=== PATIENT | male | born 1960 | race Caucasian/White ===

== ENCOUNTER 2019-03-10 12:10 | Observation (INO) | payer BC, OTHER ==
[~2019-03-10] VITALS: Ht 177.8 cm; Wt 90.7 kg
--- NOTE | ~2019-03-10 | D ---
[facility] [place] [address] DISCHARGE SUMMARY Name: CARL RONQUILLO Room #: 209-P [facility] IN M.R.#: [id number] Admission: 03/10/19 Attend Phys: Sohan Woods Discharge: 03/11/19 Date of : 58 Report #: [id number] THIS REPORT FOR: //name// CC: Sohan Jameson DATE OF SERVICE: 03/11/2019 ADMITTING DIAGNOSIS: Unstable angina. DISCHARGE DIAGNOSES: 1. Unstable angina. 2. Coronary artery disease. 3. Dyslipidemia. 4. Hypertension. 5. Acid peptic disease. DISCHARGE MEDICATIONS: Atorvastatin 20 mg a day, Cosentyx, pantoprazole, losartan, methotrexate, Advair, folic acid, sublingual nitroglycerin, Salcha, aspirin, metoprolol XL 25 mg daily. FOLLOWUP: 1. The patient is to obtain an echocardiogram as an outpatient. Says it was not done as an inpatient. 2. Return for aortocoronary bypass grafting next Friday as per Dr. Lanza's note. PROCEDURE PERFORMED: Left heart catheterization. BRIEF CLINICAL HISTORY: See history and physical in the chart. HOSPITAL COURSE: The patient was admitted to the hospital and underwent routine left heart catheterization. This demonstrates significant 3-vessel coronary artery disease, which was best amenable for long-term benefit with aortocoronary bypass grafting. Thoracic Surgery was then consulted for assessment which they concurred. The patient was started on a more rigorous antianginal regimen with Toprol-XL 25 mg daily and was allowed to ambulate after the standard bedrest post procedure. He did not have any recurrent symptomatology and he is being discharged home in stable and improved condition to follow up with the previously stated discharge instructions and medications. By: 1221 1438 Sohan Woods MD /nt
[2019-03-10 12:46] VITALS: BP 142/80
[2019-03-10] MEDS ORDERED: COSENTYX (150 MG/1 M SUBQ (12:54)
[2019-03-10] MEDS ORDERED: LIPITOR 20 MG T20 M1 PO (12:54)
[2019-03-10] MEDS ORDERED: LOSARTAN-HCTZ1 EAC1 PO (12:55)
[2019-03-10] MEDS ORDERED: PROTONIX40 M1 PO (12:55)
[2019-03-10] MEDS ORDERED: METHOTREXATE 22.5 MG PO (12:56)
[2019-03-10] MEDS ORDERED: ADVAIR HFA 115-12 G1 INH (12:57)
[2019-03-10] MEDS ORDERED: NITROGLYCERIN0.4 MG SUBLING (12:58)
[2019-03-10] MEDS ORDERED: NORCO 5-325 TA1 EAC1 PO (12:58)
[2019-03-10] MEDS ORDERED: FOLIC ACID1 MG PO (12:58)
[2019-03-10] MEDS ORDERED: IBUPROFEN 200200 M1 PO (13:00)
[2019-03-10] MEDS ORDERED: ASPIR 8181 MG PO (13:00)
[2019-03-10 13:01] LABS: HEMATOCRIT 42.8 % (42.0-52.0); HEMOGLOBIN 15.3 gm/dL (14.0-18.0); MCH 30.5 pg (26.0-34.0); MCHC 35.6 g/dL (28.0-37.0); MCV 85.5 fL (80.0-100.0); RBC 5.01 mil/uL (4.50-6.00); WBC 8.6 thou/uL (4.0-11.0)
[2019-03-10 13:12] LABS: CREATININE 0.9 mg/dL (0.7-1.3); POTASSIUM 3.5 mmol/L (3.5-5.1)
--- NOTE | 2019-03-10 13:26 | EKG ---
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
[2019-03-10 17:05] LABS: ABSOLUTE NEUTROPHILS 6.4 thou/uL (1.4-8.2); BASOPHILS 0.4 % (0.0-2.0); EOSINOPHILS 1.4 % (0.0-3.0); HEMATOCRIT 40.9 % (42.0-52.0); HEMOGLOBIN 14.6 gm/dL (14.0-18.0); LYMPHOCYTES 15.5 % (24.0-44.0); MCH 30.6 pg (26.0-34.0); MCHC 35.8 g/dL (28.0-37.0); MCV 85.5 fL (80.0-100.0); PLATELET COUNT 160 thou/uL (150-400); POLYS 75.7 % (36.0-66.0); RBC 4.78 mil/uL (4.50-6.00); RDW 14.1 % (10.5-14.5); WBC 8.5 thou/uL (4.0-11.0)
[2019-03-10 17:12] LABS: CALCIUM 8.5 mg/dL (8.5-10.1); CREATININE 0.8 mg/dL (0.7-1.3); POTASSIUM 3.4 mmol/L (3.5-5.1)
[2019-03-10 17:14] LABS: APTT 30.9 Seconds (24.5-32.8); INR 1.1
[2019-03-10 17:18] LABS: ALBUMIN 3.3 g/dL (3.4-5.0); TOTAL BILIRUBIN 0.7 mg/dL (<0.1-1.0); TOTAL PROTEIN 6.8 g/dL (6.4-8.2)
--- NOTE | 2019-03-10 17:30 | NUR ---
DR. HERNANDEZ CALLED TO GIVE ORDERS FOR PT, I TOOK NOTES FOR NURSE AND WILL ENTER MUCH I CAN AND GIVE THE NOTE TO NURSE THAT WILL CARE FOR PT
--- NOTE | 2019-03-10 18:50 | NUR ---
PT TO UNIT FROM [facility] - NO INTERVENTION - PATIENT TO HAVE CABG NEXT WEEK. GROIN SITE C/D/I/ VSS. NO CO'S OF PAIN OR NASUEA. KAROLINE DIET AND FLUIDS. PT ORIENTED TO ROOM AND BEDSPACE. MAY BE OFF BEDREST AT 1930, NO CO'S AT THE PRESENT TIME.
[2019-03-10 19:15] VITALS: BP 135/75
[2019-03-11 00:54] VITALS: BP 126/70
--- NOTE | 2019-03-11 01:29 | NUR ---
ASSESSMENTS CHARTED. PATIENT OFF BEDREST AT 1930 CATH ACCESS SITE IS CLEAN, DRY AND SOFT. NO INTERVENTIONS WERE DONE, PLAN IS FOR PATIENT TO HAVE CABG ON 03/19/19. PREOP WORKUP IS BEING COMPLETED. XRAY, ULTRASOUNDS, LABS BEING DONE PRIOR TO HIS DISCHARGE THEN RETURN FOR SURGERY.
[2019-03-11 03:42] VITALS: BP 127/76
[2019-03-11 05:10] LABS: GLYCOHEMOGLOBIN (HGB A1C) 5.5 % (4.8-5.6)
[2019-03-11] MEDS ORDERED: METOPROLOL SUCC25 M1 PO (09:27)
[2019-03-11 10:05] VITALS: BP 134/85
[2019-03-11 11:06] VITALS: BP 144/81
[2019-03-11 11:28] LABS: URINE BILIRUBIN NEGATIVE (Negative); URINE BLOOD NEGATIVE (Negative); URINE CLARITY CLEAR; URINE COLOR YELLOW; URINE GLUCOSE-RANDOM* NEGATIVE (Negative); URINE KETONES NEGATIVE (Negative); URINE LEUKOCYTES-REFLEX NEGATIVE (Negative); URINE NITRITE-REFLEX NEGATIVE (Negative); URINE PROTEIN (DIPSTICK) NEGATIVE (Negative); URINE UROBILINOGEN 0.2 E.U./dl (0.2-1.0)
[2019-03-11 12:49] VITALS: BP 144/81
--- NOTE | 2019-03-11 13:09 | NUR ---
ASSESSMENT CHARTED. PT ALERT AND ORIENTED. VSS. DENIED HAVING PAIN OR DISCOMFORT. RIGHT GROIN INCISION C/D/I. NO HEMATOMA NOTED. ORDERS GIVEN TO DISCHARGE PT TO HOME. DISCHARGE INSTRUCTIONS GIVEN TO PT. PT VERBERLIZED UNDERSTANDING.
--- NOTE | 2019-03-11 13:24 | CATHLAB ---
[facility] [place] [address] INVASIVE PROCEDURE REPORT Name: CARL RONQUILLO Room #: 209-P [facility] IN M..#: [id number] Admission: 03/10/19 Attend Phys: Sohan Rodriguez Discharge: 03/11/19 Date of : 58 Date of Service: 03/11/19 1324 Report #: [id number] THIS REPORT FOR: //name// APPROVED REPORT Study performed: 03/10/2019 13:03:51 Patient Details Patient Status: Out-Patient Room #: The patient is a 58 year-old male Event Personnel Shanti Guevara RTR Monitor, Juan José Mcginnis RN RN, Ld Hutchinson RTR Scrub, Sohan Woods Parts Salesman Procedures Performed Art Access - R femoral artery* Left Heart Cath w/or w/o Coronaries [id number] [facility] [id number] Initial Mod Sed Same Phys/QHP 5y [id number] Hemostasis with Manual pressure, division of conscious sedation Indication Positive stress test, Chest pain Risk Factors Family History, Hypercholesterolemia, Hypertension Procedure Narrative The Right Groin^ was infiltrated with 1% Lidocaine subcutaneous anesthesia. A PINNACLE 4FR Sheath #[id number] sheath was inserted into the RFA^. Coronary angiography was performed using coronary diagnostic catheters. The right coronary system was accessed and visualized with a JR4 catheter. The left coronary system was accessed and visualized with a JL5 catheter. The left ventricle was accessed and visualized with a pigtail catheter. Left ventriculogram was performed in 30 degree projection. Hemostasis was obtained with manual pressure following sheath removal without any complications. The patient tolerated the procedure well and there were no complications associated with the procedure. There was no hematoma. Intraoperative Conscious Sedation Sedation start time: 14:46 Case end Time: 15:10 Versed 2 mg [facility] [address] [place] [address] INVASIVE PROCEDURE REPORT Name: YGCARL PATRICK Room #: 209-P [facility] IN ..#: [id number] Admission: 03/10/19 Attend Phys: Sohan Rodriguez Discharge: 03/11/19 Date of : 58 Date of Service: 03/11/19 1324 Report #: [id number] Fluoro Time: 2.30 minutes Dose: DAP 3018.10 cGycm2 414 mGy Contrast Type and Amount: Omnipaque 50 ml Coronary Angiography The patient's coronary anatomy is right dominant. Diagnostic Cath Left Main Moderate caliber vessel which bifurcates left anterior descending left circumflex and is free of high-grade disease. There is evidence of epicardial calcifications noted throughout its course. In the distal portion is a eccentric 20-30% plaque that's identified LAD Small to moderate caliber two-vessel which in its proximal course is a concentric calcified lesion that appears to be in the range between 80-90%. The vessel continues on any AV groove giving rise to diagonal branch and luminal irregularities there are mild noted beyond as it terminates as a bifurcating vessel at the apex. Diagonal 1 Vee vessel diffusely diseased similarly but a less than half a millimeter diameter vessel Circumflex Small to moderate size vessel which has an eccentric calcified greater than 90% ostial lesion. The vessel continues on and gives rise to a moderate marginal branch and then continues with at least 50-60% stenosis posteriorly giving rise to 2 small posterior wall branches OM1 Moderate caliber vessel coursing along the lateral aspect of the heart with luminal irregularities but no high-grade lesions identified OM2 Small-caliber insignificant vessel without high-grade disease Right Coronary Moderate to large caliber vessel of normal origin which is heavily calcified throughout its proximal mid course. The vessel continues in the AV groove in luminal irregularities to the acute marginal or a subtotal occlusion of a small RV marginal branches noted. The RCA proper then continues posteriorly where there is a 50% region followed by normalization and then a 70+ percent lesion at the origin of the posterior descending artery. The vessel then continues on giving rise to moderate caliber posterior lateral branch that has moderate proximal disease. R PDA Small insignificant caliber vessel with diffuse proximal disease Conclusion 1. Coronary disease, severe, three-vessel [facility] [address] [place] [address] INVASIVE PROCEDURE REPORT Name: CARL RONQUILLO Room #: 209-P [facility] IN M.R.#: [id number] Admission: 03/10/19 Attend Phys: Sohan Rodriguez Discharge: 03/11/19 Date of : 58 Date of Service: 03/11/19 1324 Report #: [id number] 2. Abnormal hemodynamics with elevated left ventricle end-diastolic pressure Recommendations Cardiac Risk Reduction Program CABG <ELECTRONICALLY SIGNED> By: Sohan Woods MD 03/11/19 1324 1324 1324 Sohan Woods MD /INF
--- NOTE | 2019-03-11 15:07 | NUR ---
Pt dc'd to home today with no dc planning needs. Pt seen by cardiac rehab for preop visit. Plans noted for open heart surgery next Friday. The pt has insurance in place for f/u care. He is indep with gait and adls and lives with his . case note opened.
--- NOTE | 2019-03-13 12:15 | HC ---
[facility] [place] [address] CONSULTATION Name: CARL RONQUILLO Room #: 209-P [facility] Jennifer Aguillon#: [id number] Admission: 03/10/19 Attend Phys: Sohan Woods Discharge: 03/11/19 Date of : 58 Report #: [id number] THIS REPORT FOR: //name// CC: Sohan Jameson DATE OF SERVICE: 03/10/2019 REASON FOR CONSULT: We were asked to see the patient by Dr. Woods. HISTORY OF PRESENT ILLNESS: The patient is a 58-year-old with coronary artery disease. The patient states that he has had exertional angina characterized by chest pain. This led to a stress test where he had clinical and EKG evidence of angina and ischemia, and cardiac catheterization was done today that shows 90% distal right coronary stenosis at the crux and 60-70% LAD diffuse disease and 80% circumflex stenosis. Left ventricular function is satisfactory. PAST MEDICAL HISTORY: The patient denies previous cardiac history. He is treated for hypertension and hyperlipidemia. FAMILY HISTORY: Positive with mother having bypass surgery in her 70s and a grandfather who in his 50s of a massive heart attack. 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 He is , nonsmoker. REVIEW OF SYSTEMS: GENERAL: The patient has been in his usual state of health. CONSTITUTIONAL: No fever, chills, weight change. EYES: Wears glasses. HEENT: No headaches. No hearing problems. RESPIRATORY: No shortness of breath. No sputum production. CARDIAC: As mentioned, angina, no palpitations. GASTROINTESTINAL: No nausea, vomiting blood. GENITOURINARY: No urgency, frequency, or blood. MUSCULOSKELETAL: Arthritis. NEUROLOGIC: No motor or sensory dysfunction. PSYCHIATRIC: The patient states he has been under a lot of stress at work recently. HEMATOLOGIC: No bleeding or bruisability. PHYSICAL EXAMINATION: GENERAL: The patient is oriented and appropriate. VITAL SIGNS: Heart rate 70, O2 sat 98 on room air. HEENT: No scleral icterus, no arcus. NECK: No mass, no bruit. CHEST: Clear to auscultation. [facility] [address] [place] [address] CONSULTATION Name: CARL RONQUILLO Room #: 209-P [facility] Jennifer Aguillon#: [id number] Admission: 03/10/19 Attend Phys: Sohan Woods Discharge: 03/11/19 Date of : 58 Report #: [id number] HEART: Rhythm regular, no murmurs. ABDOMEN: Soft, no mass, no tenderness. EXTREMITIES: No clubbing, cyanosis, or edema. No obvious saphenous vein problems. VASCULAR: Pulses 2+ distally. NEUROLOGIC: No motor or sensory dysfunction. The patient is lying in bed after a femoral access cardiac cath. PSYCHIATRIC: Shows insight into problems. Oriented and appropriate. Mood is neither elevated nor depressed. IMPRESSION: The patient has important 3-vessel coronary artery disease with preserved ventricular function. The risks and details of coronary artery bypass surgery were discussed. Risks include but are not limited to bleeding, infection, anesthesia risks, heart and lung problems, stroke, and . Options and alternatives were reviewed. The patient understands all of this and he wishes to proceed. We will organize the patient for elective coronary artery bypass surgery and order the appropriate preoperative testing. Risks and details, options and alternatives were reviewed and the patient understands and is ready for the surgery. Thank you for the consult. <ELECTRONICALLY SIGNED> By: Darrick Lanza MD 03/13/19 1215 1547 2357 Darrick Lanza MD /nt
[2019-03-16] MEDS ORDERED: TOPROL XL25 MG PO (13:25)
[2019-03-16] MEDS ORDERED: FLONASE 0.05%50 MCG NASAL (13:27)
[2019-03-16] MEDS ORDERED: VENTOLIN HFA 1818 GM INH (13:42)
== END 2019-03-11 13:12 | disposition home or self-care (01) ==
LOC: CATH 12:10 → 2N 16:57 → ENTRNSPT 03-11 12:52 → EDTRNSPTSTS 03-11 12:57 → 2N 03-11 13:12
PROVIDERS: Surgery Vascular Surgery; ADMIT Internal Medicine
DX: I25.110 Atherosclerotic heart disease of native coronary artery with unstable angina pectoris (principal); I10 Essential (primary) hypertension; E78.5 Hyperlipidemia, unspecified; K30 Functional dyspepsia; M19.90 Unspecified osteoarthritis, unspecified site; J45.909 Unspecified asthma, uncomplicated; Z79.82 Long term (current) use of aspirin; Z79.899 Other long term (current) drug therapy
CPT/HCPCS: 10081

== ENCOUNTER 2019-03-19 05:54 | Inpatient (IN) | payer BC, OTHER ==
[2019-03-19] VITALS (15 sets, daily range): BP systolic 88–128; BP diastolic 50–81
[~2019-03-19] VITALS: Ht 177.8 cm; Wt 92.5 kg
[~2019-03-19 05:54] MED LIST: ADVAIR HFA 115-12 G1 INH; ASPIR 8181 MG PO; COSENTYX (150 MG/1 M SUBQ; FLONASE 0.05%50 MCG NASAL; FOLIC ACID1 MG PO; IBUPROFEN 200200 M1 PO; LIPITOR 20 MG T20 M1 PO; LOSARTAN-HCTZ1 EAC1 PO; METHOTREXATE 22.5 MG PO; METOPROLOL SUCC25 M1 PO; NITROGLYCERIN0.4 MG SUBLING; NORCO 5-325 TA1 EAC1 PO; PROTONIX40 M1 PO; TOPROL XL25 MG PO; VENTOLIN HFA 1818 GM INH
[2019-03-19 12:50] LABS: MCH 31.4 pg (26.0-34.0); MCHC 36.3 g/dL (28.0-37.0); MCV 86.5 fL (80.0-100.0); RBC 3.47 mil/uL (4.50-6.00); RDW 14.1 % (10.5-14.5)
[2019-03-19 12:53] LABS: HEMOGLOBIN 10.9 gm/dL (14.0-18.0)
[2019-03-19 13:01] LABS: INR 1.4
[2019-03-19 13:03] LABS: APTT 33.1 Seconds (24.5-32.8); FIBRINOGEN 214.7 mg/dL (210-360); PROTIME 14.9 Seconds (9.3-11.4)
[2019-03-19 13:56] LABS: POC BE -6 mmol/L (-2.0 to +3.0); POC CA IONIZED 2.5 mg/dL (4.5-5.3); POC GLUCOSE 90 mg/dL (70-99); POC HCO3 18.9 mmol/L (22.0-26.0); POC HEMOGLOBIN 10.5 g/dL (14.0-18.0); POC POTASSIUM 2.9 mmol/L (3.5-5.1); POC SODIUM 150 mmol/L (136-145); POC pCO2 31.1 mmHg (35.0-45.0); POC pH 7.392 (7.360-7.450)
[2019-03-19 13:56] LABS: POC BE 1 mmol/L (-2.0 to +3.0); POC CA IONIZED 4.1 mg/dL (4.5-5.3); POC GLUCOSE 121 mg/dL (70-99); POC HEMOGLOBIN 10.9 g/dL (14.0-18.0); POC POTASSIUM 5.2 mmol/L (3.5-5.1); POC SODIUM 135 mmol/L (136-145); POC pCO2 41.6 mmHg (35.0-45.0); POC pH 7.405 (7.360-7.450)
[2019-03-19 13:56] LABS: POC BE 2 mmol/L (-2.0 to +3.0); POC CA IONIZED 4.2 mg/dL (4.5-5.3); POC GLUCOSE 112 mg/dL (70-99); POC HCO3 26.7 mmol/L (22.0-26.0); POC HEMOGLOBIN 10.5 g/dL (14.0-18.0); POC POTASSIUM 4.7 mmol/L (3.5-5.1); POC SODIUM 137 mmol/L (136-145); POC pCO2 41.4 mmHg (35.0-45.0); POC pH 7.418 (7.360-7.450)
[2019-03-19 13:56] LABS: POC BE 2 mmol/L (-2.0 to +3.0); POC CA IONIZED 4.6 mg/dL (4.5-5.3); POC GLUCOSE 126 mg/dL (70-99); POC HEMOGLOBIN 12.2 g/dL (14.0-18.0); POC POTASSIUM 4.7 mmol/L (3.5-5.1); POC SODIUM 136 mmol/L (136-145); POC pCO2 46.6 mmHg (35.0-45.0); POC pH 7.371 (7.360-7.450)
[2019-03-19 13:56] LABS: POC BE 1 mmol/L (-2.0 to +3.0); POC CA IONIZED 4.5 mg/dL (4.5-5.3); POC GLUCOSE 135 mg/dL (70-99); POC HCO3 26.6 mmol/L (22.0-26.0); POC HEMOGLOBIN 12.6 g/dL (14.0-18.0); POC POTASSIUM 5.5 mmol/L (3.5-5.1); POC SODIUM 135 mmol/L (136-145); POC pCO2 46.3 mmHg (35.0-45.0); POC pH 7.367 (7.360-7.450)
[2019-03-19 13:57] LABS: POC BE -2 mmol/L (-2.0 to +3.0); POC CA IONIZED 4.8 mg/dL (4.5-5.3); POC GLUCOSE 128 mg/dL (70-99); POC HCO3 21.8 mmol/L (22.0-26.0); POC HEMOGLOBIN 10.9 g/dL (14.0-18.0); POC POTASSIUM 3.9 mmol/L (3.5-5.1); POC SODIUM 138 mmol/L (136-145); POC pH 7.428 (7.360-7.450)
[2019-03-19 13:57] LABS: POC BE 1 mmol/L (-2.0 to +3.0); POC GLUCOSE 161 mg/dL (70-99); POC HCO3 25.4 mmol/L (22.0-26.0); POC HEMOGLOBIN 10.5 g/dL (14.0-18.0); POC POTASSIUM 4.6 mmol/L (3.5-5.1); POC SODIUM 134 mmol/L (136-145); POC pCO2 38.3 mmHg (35.0-45.0)
[2019-03-19 13:57] LABS: POC BE 1 mmol/L (-2.0 to +3.0); POC CA IONIZED 4.2 mg/dL (4.5-5.3); POC GLUCOSE 109 mg/dL (70-99); POC HCO3 25.3 mmol/L (22.0-26.0); POC HEMOGLOBIN 10.2 g/dL (14.0-18.0); POC POTASSIUM 4.5 mmol/L (3.5-5.1); POC SODIUM 138 mmol/L (136-145); POC pCO2 37.1 mmHg (35.0-45.0); POC pH 7.442 (7.360-7.450)
[2019-03-19 13:57] LABS: POC BE -2 mmol/L (-2.0 to +3.0); POC CA IONIZED 5.1 mg/dL (4.5-5.3); POC GLUCOSE 145 mg/dL (70-99); POC HCO3 22.7 mmol/L (22.0-26.0); POC HEMOGLOBIN 9.9 g/dL (14.0-18.0); POC POTASSIUM 3.9 mmol/L (3.5-5.1); POC SODIUM 137 mmol/L (136-145); POC pCO2 35.2 mmHg (35.0-45.0); POC pH 7.417 (7.360-7.450)
[2019-03-19 13:57] LABS: POC BE 1 mmol/L (-2.0 to +3.0); POC CA IONIZED 4.1 mg/dL (4.5-5.3); POC GLUCOSE 133 mg/dL (70-99); POC HCO3 25.1 mmol/L (22.0-26.0); POC HEMOGLOBIN 10.2 g/dL (14.0-18.0); POC POTASSIUM 4.7 mmol/L (3.5-5.1); POC SODIUM 137 mmol/L (136-145); POC pCO2 38.7 mmHg (35.0-45.0); POC pH 7.421 (7.360-7.450)
[2019-03-19 14:22] LABS: BE(vivo) -3.4 mmol/L (-2 to +3); HCO3 20.8 mmol/L (22.0-26.0); PCO2 34.9 mmHg (35.0-45.0); PO2 138.9 mmHg (80.0-100.0); pH 7.394 (7.360-7.450); sO2 98.8 % (92.0-98.0)
[2019-03-19 15:51] LABS: HEMATOCRIT 34.2 % (42.0-52.0); HEMOGLOBIN 12.2 gm/dL (14.0-18.0); MCH 30.8 pg (26.0-34.0); MCHC 35.7 g/dL (28.0-37.0); MCV 86.5 fL (80.0-100.0); RBC 3.96 mil/uL (4.50-6.00); RDW 14.4 % (10.5-14.5); WBC 17.7 thou/uL (4.0-11.0)
[2019-03-19 15:54] LABS: CALCIUM 8.2 mg/dL (8.5-10.1); CREATININE 0.9 mg/dL (0.7-1.3); POTASSIUM 4.4 mmol/L (3.5-5.1)
[2019-03-19 16:09] LABS: APTT 31.4 Seconds (24.5-32.8); INR 1.2; PROTIME 12.2 Seconds (9.3-11.4)
--- NOTE | 2019-03-19 17:00 | NUR ---
CM ASSESSMENT: CASE OPENED FOR DC PLANNING. CLINICAL INFO REVIEWED. PT KNOWN FROM RECENT ADMIT WITH PLAN FOR RETURN TODAY FOR CABG. PT OUT OF SURGERY, ON VENT. PASTRY COOK, LIVING WITIH SPOUSE IN HOUSE. 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 NO DME USE. ONCE EXTUBATED AND STBALE, WILL INITIATE THERAPY EVALS AND BRANDONWO TO ASSIST WITH COORDINATION OF DC PLANS.
[2019-03-19 17:18] LABS: BE(vivo) -3.3 mmol/L (-2 to +3); HCO3 21.5 mmol/L (22.0-26.0); PCO2 37.7 mmHg (35.0-45.0); PO2 162.7 mmHg (80.0-100.0); pH 7.373 (7.360-7.450)
--- NOTE | 2019-03-19 19:10 | NUR ---
ARRIVED ON UNIT @ 1405, PT ACCOMPANIED WITH NURSING STAFF, ANESHESIOLOGIST AND SURGEON. PT ARRIVED ON PROPOFOL GTT RUNNING BUT WHEN ASSESSED PT ABLE TO FOLLOW COMMANDS. PT IN SR, BP STABLE AT THAT TIME, SHIFT PROGRESSED PT WAS REQUIRED JOEY, RN JUST RESTARTED THE BAG THAT WAS BROUGHT WITH THE PT FROM THE OR, PER DR PATTERSON ORDERS AT THE BEDSIDE. NEW ORDERS FOR JOEY ORDERED FOF PT IN THE ICU, RN COMMUNICATES THIS WITH PHARMICIST. PT EXTUBATED @ 1732 TODAY, NOW ON 4L , SATS IN THE HIGH 90'S. CHEST TUBES X [address], 2 MEDIS AND 1 PLEURAL TO -20CM. NUNEZ IN PLACE, GOP NOTED. REPORT GIVEN TO LOLI CRUM.
[2019-03-20 05:23] LABS: BE(vivo) -5.3 mmol/L (-2 to +3); HCO3 18.3 mmol/L (22.0-26.0); PCO2 29.8 mmHg (35.0-45.0); PO2 48.7 mmHg (80.0-100.0); pH 7.405 (7.360-7.450); sO2 85.3 % (92.0-98.0)
[2019-03-20 05:54] LABS: HEMATOCRIT 32.3 % (42.0-52.0); HEMOGLOBIN 11.5 gm/dL (14.0-18.0); MCH 31.1 pg (26.0-34.0); MCHC 35.5 g/dL (28.0-37.0); MCV 87.5 fL (80.0-100.0); RBC 3.69 mil/uL (4.50-6.00); RDW 14.2 % (10.5-14.5); WBC 17.3 thou/uL (4.0-11.0)
[2019-03-20 06:14] LABS: CALCIUM 8.2 mg/dL (8.5-10.1)
--- NOTE | 2019-03-20 07:00 | NUR ---
Pt rested well through the night with stable VS. PRN fentanyl and hydrocodones given for c/o chest "soreness" with desired effects achieved. SpO2 decreased earlier this am while on Cardene gtt and ABG results called to Dr. Lanza. Update given and orders received. SpO2 remain adequate on current FiO2 and BP stable with Cardene gtt turned off. Chest tube drainage minimal and urine output adequate for shift. Am lab results noted, continue with POC.
--- NOTE | 2019-03-20 08:40 | NUR ---
RD consult received for diet education. S/P CABG x6 on 03/19. Still npo and in ICU. Will address nutrition education needs once out of ICU.
[2019-03-20 10:39] LABS: HCO3 20.6 mmol/L (22.0-26.0); PCO2 32.1 mmHg (35.0-45.0); PO2 65.6 mmHg (80.0-100.0); pH 7.425 (7.360-7.450); sO2 93.6 % (92.0-98.0)
--- NOTE | 2019-03-20 10:50 | NUR ---
PT COUGHING,SPLINTING INCISION WELL W PILLOW. C/O SEVERE PAIN LT SIDE OF CHEST,LT PLEURAL TUBE AREA, A 04/29.PT W SPLINTING RESP'S,DIAPHORETIC. PA #'S SLOWLY CREEPING UP, UOP DOWN. UPDATED. ORDERS NOTED.--VW
--- NOTE | 2019-03-20 12:36 | O ---
[facility] [place] [address] OPERATIVE REPORT Name: CRAL RONQUILLO Room #: 241-P ADM IN M.R.#: [id number] Admission: 03/19/19 Attend Phys: Darrick Lanza MD Discharge: Date of : 58 Report #: [id number] THIS REPORT FOR: //name// CC: Darrick Clemenswster DATE OF SERVICE: 03/19/2019 PREOPERATIVE DIAGNOSIS: Coronary artery disease. POSTOPERATIVE DIAGNOSIS: Coronary artery disease. OPERATION: Coronary artery bypass x 6 including left internal mammary artery to left anterior descending artery, saphenous vein to diagonal, marginal 1, and marginal 2 and saphenous vein to posterior descending and posterolateral branches of the right coronary artery. Endoscopic harvest of left greater saphenous vein. SURGEON: Darrick Lanza MD RIM TECHNICIAN: TIMOTEO Narayan. ANESTHESIA: General. INDICATIONS: The patient is a 58-year-old with severe 3-vessel coronary artery disease seen for Dr. Woods. Patient has a tight 90% lesion at the crux on the right coronary and an 80% circumflex and 60% LAD stenosis. Left ventricular function satisfactory. FINDINGS AND TECHNIQUE: After general anesthesia was established, saphenous vein was harvested and prepared for use as a conduit. Harvesting was done with an endoscopic approach. In any event in the operation, exposure was obtained through median sternotomy. Left internal mammary artery was harvested from chest wall. Pericardial well was made. Cannulation sutures were placed. Heparin was given. Aorta was cannulated. Right atrium was cannulated. Cardioplegia needle was positioned in the aortic root. Retrograde cardioplegic catheter was placed in coronary sinus. Cardiopulmonary bypass was established. Aorta was cross clamped. Antegrade and retrograde cardioplegia were given. Ice was poured into the pericardial well. The heart was stopped. During electromechanical arrest, the distal anastomoses were performed and end-to-side anastomosis was made between vein and the posterolateral branch of the right coronary. Cold cardioplegia was given. The same segment of vein was sewn in wqnc-vk-dgai fashion to the posterior descending branch of the right coronary. Cold cardioplegia was given. A separate segment of vein was sewn in end-to-side fashion to the second obtuse marginal artery. Cold cardioplegia was [facility] [address] [place] [address] OPERATIVE REPORT Name: CARL RONQUILLO Room #: 241-P [facility] IN M.R.#: [id number] Admission: 03/19/19 Attend Phys: Darrick Lanza MD Discharge: Date of : 58 Report #: [id number] given. The same segment of vein was sewn in sgbl-jd-upai fashion to the first marginal artery. The anastomosis was done relatively distally because of diffuse disease. Cold cardioplegia was given. The same vein was sewn in clft-wr-djdq fashion to the first diagonal artery. Cold cardioplegia was given. Left internal mammary artery was sewn in end-to-side fashion to the left anterior descending artery. Patency of this vessel was checked with the temperature technique. Cold cardioplegia was given. Two proximal anastomoses were performed. When these were complete, warm retrograde cardioplegia was given followed by warm continuous blood to the coronary sinus. When this infusion was complete, the crossclamp was removed, de-airing maneuvers were performed. The anastomoses were inspected and found to be satisfactory. As the patient warmed, nice cardiac activity resumed, chest tubes and pacing wires were placed, a marker was placed around the proximal anastomoses. When the patient was warmed, he was weaned from cardiopulmonary bypass. Venous cannula was removed. Protamine was given, the aortic cannula was removed. Flows were measured in the bypass grafts. When hemostasis was satisfactory, chest was irrigated with antibiotic solution and closed in the usual fashion. The patient was taken to the Intensive Care Unit in good condition having tolerated the procedure well. All counts reported as correct. <ELECTRONICALLY SIGNED> By: Darrick Lanza MD 03/20/19 1236 1708 1747 Darrick Lanza MD /nt
[2019-03-20 19:20] VITALS: BP 130/59
--- NOTE | 2019-03-20 19:30 | NUR ---
OOB TO CHAIR SEVERAL HRS. KAROLINE WELL,MORE COMF SITTING UP TO BSC-NO BM,NO PASSING OF GAS. DOING WELL W I.S.,PULLING AT LEAST A LITER W GOOD EFFORT. WEAK COUGH,SPLINTS WELL. MST'S REMOVED W/O PROBLEMS,PT KAROLINE WELL. STATES TORADOL HAS HELPED.PAIN HAS NEVER BEEN LOWER THAN A 4. ENC INC IN PO INTAKE & TO EAT. TAKING APPLESAUCE-NO N/V. HEMODYNAMICS IMPROVED AFTER LASIX BUT NO HUGE UOP.VISITORS LIMITED THIS AM THEN RESTRICTED THIS AFTERNOON FOR PT TO REST.DID SLEEP A WHILE WHEN IN THE CHAIR. SLOWLY PROGRESSING TOWARD GOALS.CARE TURNED OVER TO ONCOMING RN.--VW
[2019-03-21] VITALS (24 sets, daily range): BP systolic 104–134; BP diastolic 60–73
[2019-03-21 04:22] LABS: HEMATOCRIT 29.2 % (42.0-52.0); HEMOGLOBIN 10.4 gm/dL (14.0-18.0); MCH 31.2 pg (26.0-34.0); MCHC 35.7 g/dL (28.0-37.0); MCV 87.4 fL (80.0-100.0); RBC 3.34 mil/uL (4.50-6.00); RDW 14.5 % (10.5-14.5); WBC 13.6 thou/uL (4.0-11.0)
[2019-03-21 04:30] LABS: POTASSIUM 4.1 mmol/L (3.5-5.1)
[2019-03-21 04:50] LABS: BE(vivo) 0.5 mmol/L (-2 to +3); HCO3 24.5 mmol/L (22.0-26.0); PCO2 37.1 mmHg (35.0-45.0); PO2 70.2 mmHg (80.0-100.0); pH 7.437 (7.360-7.450); sO2 94.7 % (92.0-98.0)
--- NOTE | 2019-03-21 06:00 | NUR ---
Pt remains stable in this shift. Slept well tonight. Pain has been a better control with toradol, alternated pain med with fentanyl and norco in this shift. Taking PO well. Denies of any GI discomfort. Monitoring lines, CT and Rebollar are intact and continue to function properly. No changes of cardiac rhythms from previous assessment. Up in chair this am. He is moody activity well. Continue with sternal precaution. Report hand off to on coming RNs.
--- NOTE | 2019-03-21 17:47 | NUR ---
PT TRANSFERRED FROM ICU APPROX 1710. PT ALERT AND ORIENTED X4. DENIES PAIN AND SOA. VSS. BS WNL. SITTING COMFORTABLE IN RECLINER WITH AT BEDSIDE. VOIDED POST URINARY CATH REMOVAL. SR ON THE HEART MONITOR. GAIT UNASSESSED. FALL PRECAUTIONS IN PLACE. PT DENIES QUESTIONS OR CONCERNS REGARDING POC OR TRANSFER. NO OUTPT TO CT. RECONNECTED TO SUCTION ON ARRIVAL PER ORDER. ALL DSG C/D/I.
--- NOTE | 2019-03-21 18:28 | NUR ---
INTERVENTIONS AND ASSESSMENTS DOCCUMENTED. PATIENT IN CHAIR AT SHIFT CHANGE. PATIENT HAVING CONCERNS ABOUT PAIN CONTROLL. ART LINE, NUNEZ AND SWAN REMOVED PER ORDER. PATIENT TOLERATED PROCEDURE WELL. PT ARRIVED TO WORK WITH PATIENT AND WALKED PATIENT IN THE RODRIGUEZ. PATIENT AND SPOUSE EDUCATED ON PLAN OF CARE. TRANSFER ORDERS RECIEVED AND REPORT GIVEN TO NURSE ON CCU. PATIENT TRANSFERED TO CCU VIA WHEELCHAIR. UPON ARRIVAL TO CCU, PATIENT SAT IN CHAIR. CHAIR ALARM ACTIVATED AND CCU NURSE ASSUMED CARE.
--- NOTE | 2019-03-21 18:39 | NUR ---
PT STRAIGHT CATHED PER HOSPITAL PROTOCOL FOR URINARY RETENTION. 430ML NOTED ON SCANNER AND 400ML OUT ON CATH. WILL MAKE NIGHT NURSE AWARE TO F/U APPROPRIATELY.
[2019-03-22 00:43] VITALS: BP 121/79
--- NOTE | 2019-03-22 02:20 | NUR ---
TRANSFERED FROM ICU PO DAY 2 PRIOR TO SHIFT CHANGE. NUNEZ WAS TAKEN OUT AT 1000, HAD NOT URINATED DURING DAY SHIFT. WAS BLADDER SCANNED AND THEN STRAIGHT CATHED WITH 400 OUT. ASSESSMENTS CHARTED. C/O PAIN AT CHEST TUBE SITE 02/27 MEDS CHARTED. RECHECKED BLADDER LEVEL AT MIDNIGHT, 267MLS. WILL RECHECK AT 0400. FALL PRECAUTIONS IN PLACE.
[2019-03-22 05:02] VITALS: BP 140/86
[2019-03-22 07:47] VITALS: BP 134/87
[2019-03-22 11:40] VITALS: BP 137/82
--- NOTE | 2019-03-22 16:16 | NUR ---
ASSUME CARE OF PT AT SHIFT CHANGE. ASSESSMENTS CHARTED. MEDS GIVEN PER SEP. VSS. A&O. TOLERATING RA WELL. URINARY RETENTION RESOLVED. C/O NAUSEA AFTER ADMIN OF PAIN MEDS. ZOFRAN GIVEN WITH PARTIAL RELIEF. CRACKERS AT BEDSIDE. WILL CONTINUE TO MONITOR AND FOLLOW POC.
[2019-03-22 16:27] VITALS: BP 121/76
[2019-03-22 20:27] VITALS: BP 122/76
[2019-03-23 03:49] VITALS: BP 116/71
[2019-03-23 04:55] LABS: CALCIUM 8.2 mg/dL (8.5-10.1); CREATININE 0.8 mg/dL (0.7-1.3); POTASSIUM 3.6 mmol/L (3.5-5.1)
--- NOTE | 2019-03-23 04:56 | NUR ---
ASSESSMENTS CHARTED. PATIENT MORE COMFORTABLE SINCE CHEST TUBE AND PACER WIRES HAVE BEEN DISCONTINUED. WALKED THE LENGTH OF THE BACK HALLWAY DURING SHIFT. C/O HEARTBURN, RECEIVED ORDER FOR TUMS. PATIENT ABLE TO URINATE. FALL PRECAUTIONS IN PLACE. PLAN IS TO CONTINUE PT/OT AND STRENGTHING.
[2019-03-23 05:22] LABS: HEMATOCRIT 25.9 % (42.0-52.0); HEMOGLOBIN 9.2 gm/dL (14.0-18.0); MCH 31.1 pg (26.0-34.0); MCHC 35.6 g/dL (28.0-37.0); MCV 87.3 fL (80.0-100.0); RBC 2.97 mil/uL (4.50-6.00); RDW 14.5 % (10.5-14.5)
[2019-03-23 07:32] VITALS: BP 117/63
--- NOTE | 2019-03-23 07:42 | EKG ---
[address] [place] [address] ELECTROCARDIOGRAM REPORT Name: CARL RONQUILLO Room #: 212-P ADM IN M.R.#: [id number] Admission: 03/19/19 Attend Phys: Darrick Lanza MD Discharge: Date of : 58 Report #: [id number] THIS REPORT FOR: //name// [facility] Test Date: 2019-03-19 Test Time: 15:14:57 Pat Name: CARL RONQUILLO Department: Room: [facility] Gender: M Manufacturing Quality Engineer: Lizz JEAN BAPTISTE : 1960 Requested By: Raymundo Khan Order Number: [id number] MD: Shmuel Wilcox Measurements Intervals [place] Rate: 82 P: 44 DE: 166 QRS: 48 QRSD: 96 T: 10 QT: 387 QTc: 452 Interpretive Statements Sinus rhythm Normal tracing Compared to ECG 03/10/2019 13:08:49 No significant changes Electronically Signed On 03-23-2019 7:42:26 CDT by Shmuel Wilcox [email or web address] <ELECTRONICALLY SIGNED> By: Shmuel Wilcox MD, [facility] 03/23/19 0742 1514 151 Shmuel Wilcox MD, [facility] /EPI
--- NOTE | 2019-03-23 07:59 | EKG ---
[address] [place] [address] ELECTROCARDIOGRAM REPORT Name: CARL RONQUILLO Room #: 212-P ADM IN M.R.#: [id number] Admission: 03/19/19 Attend Phys: Darrick Lanza MD Discharge: Date of : 58 Report #: [id number] THIS REPORT FOR: //name// [facility] Test Date: 2019-03-20 Test Time: 07:10:34 Pat Name: CARL RONQUILLO Department: Room: [facility] Gender: M Manager Front Office: AMBROCIO : 1960 Requested By: Raymundo Khan Order Number: [id number] MD: Shmuel Wilcox Measurements Intervals [place] Rate: 77 P: 44 FL: 139 QRS: 3 QRSD: 99 T: 4 QT: 391 QTc: 443 Interpretive Statements Sinus rhythm Abnormal R-wave progression, early transition ST elevation, consider pericarditis Compared to ECG 03/10/2019 13:08:49 ST (T wave) deviation now present Electronically Signed On 03-23-2019 7:59:32 CDT by Shmuel Wilcox [email or web address] <ELECTRONICALLY SIGNED> By: Shmuel Wilcox MD, [facility] 03/23/19 0759 0710 0710 Shmuel Wilcox MD, [facility] /EPI
--- NOTE | 2019-03-23 09:14 | EKG ---
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
[2019-03-23 11:30] VITALS: BP 124/65
[2019-03-23 16:45] VITALS: BP 106/64
--- NOTE | 2019-03-23 18:16 | NUR ---
ASSESMENT DOCUMENTED, PROGRSSEING TOWARD GOALS. WALKED THE HALLWAYS X4. VSS AND AFEBRILE. SR ON THE MONITOR. C/O ACID REFLEX SCHEDULLED PEPJALEELD GIVEN AND LUPE NOTFIED. AND WILL [id number] WITH POC.
[2019-03-23 20:30] VITALS: BP 117/60
--- NOTE | 2019-03-24 04:43 | NUR ---
ASSESSMENTS CHARTED. PT C/O ACID REFUX AND HEARTBURN. ORDERS RECEIVED FOR MEDS AND LABS. PATIENT UP AT [facility]. CONTINUING TO USE I.S. C/O PAIN ONCE DURING NIGHT. PLAN OF CARE IS TO BE DISCHARGED TODAY.
[2019-03-24 05:15] VITALS: BP 102/50
[2019-03-24 05:35] LABS: ABSOLUTE RETIC COUNT 0.124 10^6/uL; HEMATOCRIT 24.2 % (42.0-52.0); HEMOGLOBIN 8.8 gm/dL (14.0-18.0); MCH 31.7 pg (26.0-34.0); MCHC 36.2 g/dL (28.0-37.0); MCV 87.5 fL (80.0-100.0); OBSERVED RETIC COUNT 4.48 % (0.6-2.6); RBC 2.77 mil/uL (4.50-6.00); RDW 14.3 % (10.5-14.5); WBC 6.6 thou/uL (4.0-11.0)
[2019-03-24 05:40] LABS: % SATURATION 13 % (20-39); IRON 25 ug/dL (65-175); TIBC 199 ug/dL (250-450)
[2019-03-24 05:55] LABS: FOLIC ACID 15.4 ng/mL (8.6-58.9)
[2019-03-24 08:00] VITALS: BP 105/62
[2019-03-24] MEDS ORDERED: FERREX 150 PLU1 EAC1 PO (12:27)
[2019-03-24] MEDS ORDERED: FLOMAX0.4 MG PO (12:27)
[2019-03-24 12:50] VITALS: BP 105/62
[2019-03-24] MEDS ORDERED: PEPCID20 MG PO (13:31)
[2019-03-24] MEDS ORDERED: COLACE 100 MG100 MG PO (13:31)
[2019-03-24] MEDS ORDERED: TUMS PO (13:31)
[2019-03-24] MEDS ORDERED: NYSTATIN100000 UNI SW&SWALLOW (13:31)
[2019-03-24] MEDS ORDERED: MELATONIN1 MG PO (13:31)
[2019-03-24] MEDS ORDERED: MIRALAX17 GM PO (13:31)
[2019-03-24] MEDS ORDERED: MAGNESIUM400 MG PO (13:31)
[2019-03-24] MEDS ORDERED: IRON325 PO (13:32)
[2019-03-24 13:35] VITALS: BP 105/62
[2019-03-24] MEDS ORDERED: LOPRESSOR25 PO (13:42)
[2019-03-24] MEDS ORDERED: PACERONE 200 M200 M1 PO (14:03)
--- NOTE | 2019-03-24 15:06 | NUR ---
ASSUMED CARE AT SHIFT CHANGE, ALERT AND ORIENTED X4. INCISION DRESSING D/C/I. VSS AND SR ON THE MONITOR. DISCHARGE AND MEDICATION INSTRUCTIONS GIVEN TO PATIENT AND SPOUSE. PATIENT DISCHARGED HOME.
--- NOTE | 2019-03-24 15:34 | NUR ---
ANTICIPATE NO CM DC NEEDS UPON DC. THERAPY EVALS NOTED AND DC WITH PLAN FOR OUTPATIENT CARDIAC REHAB. CONT TO FOLLOW IF NEEDS ARISE.
== END 2019-03-24 16:17 | disposition home or self-care (01) | DRG 236 ==
LOC: ICU 05:54 → TBA 05:54 → 2N 05:54 → PRE 11:23 → ICU 14:06 → PRE 14:22 → 2N 03-21 17:20 → ENTRNSPT 03-24 14:59 → EDTRNSPTSTS 03-24 15:01 → 2N 03-24 16:17
PROVIDERS: Internal Medicine; Physician Assistant; ADMIT Surgery Vascular Surgery
DX: I25.10 Atherosclerotic heart disease of native coronary artery without angina pectoris (principal); I10 Essential (primary) hypertension; E78.5 Hyperlipidemia, unspecified; J45.909 Unspecified asthma, uncomplicated; R33.9 Retention of urine, unspecified; D64.9 Anemia, unspecified; K21.9 Gastro-esophageal reflux disease without esophagitis; L40.50 Arthropathic psoriasis, unspecified; Z87.442 Personal history of urinary calculi; Z79.899 Other long term (current) drug therapy; Z82.49 Family history of ischemic heart disease and other diseases of the circulatory system
CPT/HCPCS: 10078; 10081; 47000; 47001; 47002; 47297; 48888; 50010; 50011; 50249; 50409; 50456; 50498; 50668; 51301; 52131; 52259; 52314; 53327; 53358; 54118; 56455; 56524; 56525; 56526; 56527; 56528; 56531; 56534; 56668; 56760; 56898; 57093; 57116; 57167; 62110; 62950; 65003; 65020; 65047; 65090; 65120; 65131; 65135; 83006; 85076